=== PATIENT | female | born 1975 | race Hispanic/Latino ===

== ENCOUNTER 2020-10-26 11:20 | Emergency (ER) | payer SELFPAY ==
[2020-10-26 13:04] LABS: Absolute Lymphocytes (CBC) 2.1 K/uL (0.7-4.9); Basophils % 0.5 % (0-1.3); Hematocrit 24.2 % (36.0-45.0); Lymphocytes % 28.3 % (15.3-44.8); MPV 8.7 fL (7.6-11.3); RBC Red Blood Cell Count 4.23 M/uL (3.86-4.86)
--- NOTE | 2020-10-26 13:18 | RAD REPORT ---
EXAM DESCRIPTION: US - Abdomen Exam Limited - 10/26/2020 1:03 pm CLINICAL HISTORY: RUQ COMPARISON: No comparisons FINDINGS: No gallstones, sludge or other significant findings within the gallbladder lumen. An incid ental 2-3 mm polyp was seen adherent to the wall. There is no wall thickening or pericholecystic flui d. No common duct stone or biliary tree dilatation identified. IMPRESSION: No gallstones or significant gallbladder finding. No biliary tree abnormality.
[2020-10-26 13:33] LABS: ALT/SGPT 19 U/L (12-78); AST/SGOT 16 U/L (15-37); Albumin 3.5 g/dL (3.4-5.0); Alkaline Phosphatase 113 U/L (45-117); BUN Blood Urea Nitrogen 8 mg/dL (7-18); Bicarbonate 25 mmol/L (21-32); Bilirubin Direct < 0.1 mg/dL (0-0.2); Bilirubin Total 0.4 mg/dL (0.2-1.0); Glucose Level 96 mg/dL (74-106); Lipase 63 U/L (73-393); Potassium 4.1 mmol/L (3.5-5.1); Sodium Level 141 mmol/L (136-145)
[2020-10-26 13:48] LABS: Blood Morphology Comment NOTED (NOT SEEN); Platelet Estimate ADEQ; White Blood Cell Scan OK (OK)
[2020-10-26 13:49] LABS: Hypochromasia 3+
[2020-10-26 14:10] LABS: Urine Blood NEGATIVE (NEG); Urine Glucose NEGATIVE (NEG); Urine Protein NEGATIVE (NEG); Urine Specific Gravity 1.025 (1.005-1.030); Urine pH 5.5 (5.0-7.0)
--- NOTE | 2020-10-26 14:32 | EDPHYS ---
Physician Documentation [facility] Name: Glendy Galarza Age: 45 yrs Sex: Female : 1975 Arrival Date: 10/26/2020 Time: 11:22 Bed 25 Private MD: ED Physician Pedro Cutler HPI: 10/26 12:57 This 45 yrs old Female presents to ER via Ambulatory with complaints of Back ma2 Pain, Numbness - l leg. 12:57 This 45 yrs old Female presents to ER via Ambulatory with complaints of Back ma2 Pain, Numbness - l leg. 12:57 The patient presents with pain and a burn. The symptoms are located in the right flank ma2 and RUQ . Onset: The symptoms/episode began/occurred gradually, 2 day(s) ago. Associated signs and symptoms: Pertinent negatives: constipation, fever, headache, hematuria, nausea. Severity of symptoms: At their worst the symptoms were very mild, in the emergency department the symptoms have resolved. The patient has not experienced similar symptoms in the past. Historical: - Allergies: 11:36 No Known Allergies; aa5 - Home Meds: 11:36 None [Active]; aa5 - PMHx: 11:36 None; aa5 - PSHx: 11:36 left wrist surgery; aa5 - Immunization history:: Adult Immunizations unknown. - Social history:: Smoking status: Patient denies any tobacco usage or history of. Patient/guardian denies using alcohol, street drugs, The patient lives with family. - Family history:: not pertinent. ROS: 12:57 Constitutional: Negative for fever, chills, and weight loss. ma2 12:57 All other systems are negative. Exam: 12:57 Constitutional: This is a well developed, well nourished patient who is awake, alert, ma2 and in no acute distress. Head/Face: Normocephalic, atraumatic. Eyes: Pupils equal round and reactive to light, extra-ocular motions intact. Lids and lashes normal. Conjunctiva and sclera are non-icteric and not injected. Cornea within normal limits. Periorbital areas with no swelling, redness, or edema. ENT: Nares patent. No nasal discharge, no septal abnormalities noted. Tympanic membranes are normal and external auditory canals are clear. Oropharynx with no redness, swelling, or masses, exudates, or evidence of obstruction, uvula midline. Mucous membranes moist. Neck: Trachea midline, no thyromegaly or masses palpated, and no cervical lymphadenopathy. Supple, full range of motion without nuchal rigidity, or vertebral point tenderness. No Meningismus. Chest/axilla: Normal chest wall appearance and motion. Nontender with no deformity. No lesions are appreciated. Cardiovascular: Regular rate and rhythm with a normal S1 and S2. No gallops, murmurs, or rubs. Normal PMI, no JVD. No pulse deficits. Respiratory: Lungs have equal breath sounds bilaterally, clear to auscultation and percussion. No rales, rhonchi or wheezes noted. No increased work of breathing, no retractions or nasal flaring. Abdomen/GI: Soft, non-tender, with normal bowel sounds. No distension or tympany. No guarding or rebound. No evidence of tenderness throughout. Skin: Warm, dry with normal turgor. Normal color with no rashes, no lesions, and no evidence of cellulitis. MS/ Extremity: Pulses equal, no cyanosis. Neurovascular intact. Full, normal range of motion. Neuro: Awake and alert, GCS 15, oriented to person, place, time, and situation. Cranial nerves II-XII grossly intact. Motor strength 5/5 in all extremities. Sensory grossly intact. Cerebellar exam normal. Normal gait. Vital Signs: 11:36 BP 111 / 52; Pulse 81; Resp 16 S; Temp 98.0(TE); Pulse Ox 100% on R/A; Weight 104.33 kg aa5 (R); Height 5 ft. 2 in. (157.48 cm) (R); Pain 5/10; 14:23 BP 111 / 92; Pulse 75; Resp 18; Pulse Ox 99% on R/A; zb 11:36 Body Mass Index 42.07 (104.33 kg, 157.48 cm) aa5 MDM: 11:44 Patient medically screened. ma2 14:30 Differential diagnosis: Pyelonephritis Renal Infarction sprain, Ureterolithiasis. Data ma2 reviewed: vital signs, nurses notes. Counseling: I had a detailed discussion with the patient and/or guardian regarding: the historical points, exam findings, and any diagnostic results supporting the discharge/admit diagnosis, the presence of at least one elevated blood pressure reading (>120/80) during this emergency department visit, the need for outpatient follow up. Response to treatment: the patient's symptoms have resolved after treatment. 10/26 12:21 Order name: Basic Metabolic Panel ma2 10/26 12:21 Order name: CBC with Diff ma2 10/26 12:21 Order name: Hepatic Function ma2 10/26 12:21 Order name: Lipase ma2 10/26 12:56 Order name: CBC with Automated Diff; Complete Time: 14:17 EDMS 10/26 13:22 Order name: Urine Dipstick--Ancillary (enter results) bd 10/26 12:21 Order name: US Abdomen Limited; Complete Time: 13:29 ma2 10/26 12:21 Order name: IV Saline Lock; Complete Time: 12:38 ma2 10/26 13:22 Order name: Urine --Ancillary (enter results) bd 10/26 13:33 Order name: Basic Metabolic Panel; Complete Time: 14:17 EDMS 10/26 13:33 Order name: Liver (Hepatic) Function; Complete Time: 14:17 EDMS 10/26 13:33 Order name: Lipase; Complete Time: 14:17 EDMS 10/26 14:11 Order name: Urine --Ancillary; Complete Time: 14:17 EDMS 10/26 14:11 Order name: Urine Dipstick-Ancillary; Complete Time: 14:17 EDMS 10/26 12:21 Order name: NPO; Complete Time: 12:38 ma2 10/26 12:21 Order name: Urine Dipstick-Ancillary (obtain specimen); Complete Time: 13:22 ma2 Administered Medications: No medications were administered Disposition: 10/26/20 14:31 Discharged to Home. Impression: Upper abdominal pain, unspecified. - Condition is Stable. - Discharge Instructions: Abdominal Pain, Adult. - Prescriptions for Diclofenac Sodium 75 mg Oral Tablet Sustained Release - take 1 tablet by ORAL route 2 times per day; 30 tablet. Pepcid 20 mg Oral Tablet - take 1 tablet by ORAL route once daily; 20 tablet. - Medication Reconciliation Form, Thank You Letter, Antibiotic Education, Prescription Opioid Use form. - Follow up: Private Physician; When: Tomorrow; Reason: If symptoms return, Continuance of care. Signatures: Dispatcher [employer] EDMS Alba Olsen RN RN aa5 Pedro Cutler MD MD ma2 Donna Wu RN RN zb Corrections: (The following items were deleted from the chart) 14:55 14:31 10/26/2020 14:31 Discharged to Home. Impression: Upper abdominal pain, zb unspecified. Condition is Stable. Forms are Medication Reconciliation Form, Thank You Letter, Antibiotic Education, Prescription Opioid Use. Follow up: Private Physician; When: Tomorrow; Reason: If symptoms return, Continuance of care. ma2
--- NOTE | 2020-10-26 14:32 | ER ---
Nurse's Notes [facility] Name: Glendy Galarza Age: 45 yrs Sex: Female : 1975 Arrival Date: 10/26/2020 Time: 11:22 Bed 25 Private MD: Diagnosis: Upper abdominal pain, unspecified Presentation: 10/26 11:35 Chief complaint: Patient states: right flank pain radiating to RUQ that began 2-3 days aa5 ago, pt also reports tingling to left leg for 2-3 days ago. Pt denies nausea/vomiting/diarrhea. Coronavirus screen: Client denies travel out of the [place] in the last 14 days. At this time, the client does not indicate any symptoms associated with coronavirus-19. Ebola Screen: Patient negative for fever greater than or equal to 101.5 degrees Fahrenheit, and additional compatible Ebola Virus Disease symptoms. Initial Sepsis Screen: Does the patient meet any 2 criteria? No. Patient's initial sepsis screen is negative. Does the patient have a suspected source of infection? No. Patient's initial sepsis screen is negative. Risk Assessment: Do you want to hurt yourself or someone else? Patient reports no desire to harm self or others. Onset of symptoms was October 2020. 11:35 Acuity: ANGEL 3 aa5 11:35 Method Of Arrival: Ambulatory aa5 Historical: - Allergies: 11:36 No Known Allergies; aa5 - Home Meds: 11:36 None [Active]; aa5 - PMHx: 11:36 None; aa5 - PSHx: 11:36 left wrist surgery; aa5 - Immunization history:: Adult Immunizations unknown. - Social history:: Smoking status: Patient denies any tobacco usage or history of. Patient/guardian denies using alcohol, street drugs, The patient lives with family. - Family history:: not pertinent. Screenin:11 Abuse screen: Denies threats or abuse. Denies injuries from another. Nutritional zb screening: No deficits noted. Tuberculosis screening: No symptoms or risk factors identified. Fall Risk None identified. Assessment: 12:05 General: Appears in no apparent distress. comfortable, Behavior is calm, cooperative, zb appropriate for age. Pain: Complains of pain in Right flank/back pain and left leg numbness Pain currently is 6 out of 10 on a pain scale. Pain began 2-3 days ago. Is continuous. Neuro: Level of Consciousness is awake, alert, obeys commands, Oriented to person, place, time, situation, Reports numbness in Left leg since 2 days ago. Cardiovascular: Capillary refill < 3 seconds in bilateral Patient's skin is warm and dry. Respiratory: Airway is patent Respiratory effort is even, unlabored, Respiratory pattern is regular, symmetrical. GI: No signs and/or symptoms were reported involving the gastrointestinal system. Abdomen is round non-distended. : No signs and/or symptoms were reported regarding the genitourinary system. EENT: No signs and/or symptoms were reported regarding the EENT system. Derm: Skin is intact, is healthy with good turgor, Skin is normal. Musculoskeletal: No signs and/or symptoms reported regarding the musculoskeletal system. Circulation, motion, and sensation intact. Range of motion: intact in all extremities. 13:00 Reassessment: Patient appears in no apparent distress at this time. Patient and/or zb family updated on plan of care and expected duration. Pain level reassessed. Patient is alert, oriented x 3, equal unlabored respirations, skin warm/dry/pink. family at bedside, warm blanket given to patient. 14:05 Reassessment: Patient appears in no apparent distress at this time. Patient and/or zb family updated on plan of care and expected duration. Pain level reassessed. Patient is alert, oriented x 3, equal unlabored respirations, skin warm/dry/pink. Vital Signs: 11:36 BP 111 / 52; Pulse 81; Resp 16 S; Temp 98.0(TE); Pulse Ox 100% on R/A; Weight 104.33 kg aa5 (R); Height 5 ft. 2 in. (157.48 cm) (R); Pain 5/10; 14:23 BP 111 / 92; Pulse 75; Resp 18; Pulse Ox 99% on R/A; zb 11:36 Body Mass Index 42.07 (104.33 kg, 157.48 cm) aa5 ED Course: 11:22 Patient arrived in ED. as 11:34 Arm band placed on. aa5 11:35 Triage completed. aa5 11:44 Pedro Cutler MD is Attending Physician. ma2 11:54 Brown, Donna, RN is Primary Nurse. zb 12:11 Patient has correct armband on for positive identification. Bed in low position. Call zb light in reach. Side rails up X 1. Door closed. Noise minimized. 12:50 Inserted saline lock: 20 gauge in right antecubital area, using aseptic technique. zb Missed attempt(s): 20 gauge in left antecubital area. 13:03 US Abdomen Limited In Process Unspecified. EDMS 14:30 No provider procedures requiring assistance completed. IV discontinued, intact, zb bleeding controlled, No redness/swelling at site. Pressure dressing applied. Administered Medications: No medications were administered Outcome: 14:30 Discharged to home ambulatory, with family. zb 14:30 Condition: stable 14:30 Discharge instructions given to patient, family, Instructed on discharge instructions, follow up and referral plans. medication usage, Demonstrated understanding of instructions, follow-up care, medications, Prescriptions given X 2. 14:31 Discharge ordered by . grabiel 14:55 Patient left the ED. zb Signatures: Dispatcher [employer] Nancy Garcia Audri, RN RN dani5 Pedro Cutler MD MD ma2 Brown, Zipporah, RN RN zb
== END 2020-10-26 14:55 | disposition home or self-care (01) ==
LOC: ER 11:20
DX: R10.11 Right upper quadrant pain (principal)
CPT/HCPCS: 36415; 76705; 80048; 80076; 81003; 81025; 83690; 85025; 99283

== ENCOUNTER 2021-07-05 11:04 | Emergency (ER) | payer SELFPAY ==
--- NOTE | 2021-07-05 12:42 | RAD REPORT ---
EXAM DESCRIPTION: CT - Head Brain Wo Cont - 07/05/2021 12:27 pm CLINICAL HISTORY: VISUAL DISTURBANCES COMPARISON: HEAD BRAIN W O CONTRAST dated 07/26/2015 TECHNIQUE: All CT scans are performed using dose optimization technique as appropriate and may inclu de automated exposure control or mA/KV adjustment according to patient size. FINDINGS: No intracranial hemorrhage, hydrocephalus or extra-axial fluid collection.No areas of brai n edema or evidence of midline shift. The paranasal sinuses and mastoids are clear. The calvarium is intact. IMPRESSION: No acute intracranial abnormality.
--- NOTE | 2021-07-05 15:07 | RAD REPORT ---
EXAM DESCRIPTION: MRI - Brain Wo Cont - 07/05/2021 2:47 pm CLINICAL HISTORY: Left eye lateral rectus palsy COMPARISON: 07/05/2021 TECHNIQUE: Sagittal T1-weighted images were obtained along with PD/heavily T2-weighted and T2-FLAIR images. Axial DWI and ADC mapping sequences were also obtained along with coronal heavily T2-weighted images were obtained. FINDINGS: No intracranial hemorrhage, mass or acute infarction. There is no edema or shift of midlin e structures. No extra-axial fluid collections. There are age advanced bilateral T2/FLAIR hyperintens e foci within the centrum semiovale and kincaid radiata. Several of these are oriented perpendicularly to the lateral ventricles. Signal voids are seen as a normal finding in the major intracranial vesse ls. There is also abnormal signal within the cerebellar peduncles. Mastoid air cells and paranasal sinuses are clear. IMPRESSION: No acute infarct identified. Bilateral T2/FLAIR hyperintense foci within the supra- and infratentorial brain concerning for a demyelinating disease in a patient of this age including multip le sclerosis.
--- NOTE | 2021-07-05 16:37 | ER ---
Nurse's Notes [facility] Name: Glendy Galarza Age: 46 yrs Sex: Female : 1975 Arrival Date: 07/05/2021 Time: 11:36 Bed DIS8 Private MD: Diagnosis: Demyelinating disease of central nervous system, unspecified Presentation: 07/05 12:13 Chief complaint: Patient states: Left eye blurry x 1 week, denies dizziness. jl7 Coronavirus screen: Client denies travel out of the [place] in the last 14 days. At this time, the client does not indicate any symptoms associated with coronavirus-19. Ebola Screen: No symptoms or risks identified at this time. Initial Sepsis Screen: Does the patient meet any 2 criteria? No. Patient's initial sepsis screen is negative. Does the patient have a suspected source of infection? No. Patient's initial sepsis screen is negative. Risk Assessment: Do you want to hurt yourself or someone else? Patient reports no desire to harm self or others. Onset of symptoms was June 28, 2021. 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 - Social history:: Smoking status: Patient denies any tobacco usage or history of. Screenin:35 Abuse screen: Denies threats or abuse. Denies injuries from another. Nutritional iw screening: No deficits noted. Tuberculosis screening: No symptoms or risk factors identified. Assessment: 15:35 Reassessment: Patient appears in no apparent distress at this time. Patient and/or iw family updated on plan of care and expected duration. Pain level reassessed. Patient is alert, oriented x 3, equal unlabored respirations, skin warm/dry/pink. Vital Signs: 12:13 BP 117 / 95; Pulse 105; Resp 17; Temp 98.3; Pulse Ox 100% ; Pain 0/10; jl7 ED Course: 11:36 Patient arrived in ED. am2 12:14 Triage completed. jl7 12:14 Arm band placed on right wrist. jl7 12:26 CT Head Brain wo Cont In Process Unspecified. EDMS 13:52 Alonso Glez is Attending Physician. sp3 14:28 MRI - Brain Wo Cont In Process Unspecified. EDMS 15:23 Marika Blue, RN is Primary Nurse. iw 16:36 Bob Galeas MD is Referral Physician. sp3 Administered Medications: No medications were administered Outcome: 16:37 Discharge ordered by MD. sp3 16:54 Patient left the ED. hb Signatures: Dispatcher [employer] EDMS Marika Blue, RN RN Jennie Gonzalez RN RN Alana Cummings RN RN jl7 Selma Bob am2 Alonso Glez sp3
--- NOTE | 2021-07-05 16:37 | EDPHYS ---
Physician Documentation [facility] Name: Glendy Galarza Age: 46 yrs Sex: Female : 1975 Arrival Date: 07/05/2021 Time: 11:36 Bed DIS8 Private MD: ED Physician Alonso Glez HPI: 07/05 14:22 This 46 yrs old Female presents to ER via Ambulatory with complaints of sp3 Dizziness, Eye Problem, Vision Problem. 14:22 46-year-old female with no known medical problems and on no medications presents with a sp3 3-day history of double vision on horizontal gaze on the left side. Patient first noticed a mild double vision which is progressed since then. Patient has no symptoms when looking up, down, right or any issues or changes with her visual acuity. Patient denies headache, fever, neck pain, chest pain, shortness of breath, weight loss, weight gain, syncope, near syncope, confusion, memory loss, sensory deficits, or any other aspects of ROS at this time. Symptoms are isolated to the eye itself and patient also denies trauma. Patient does not get regular eye care and does not wear contact lenses or corrective eyewear.. 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 - Social history:: Smoking status: Patient denies any tobacco usage or history of. ROS: 14:24 Constitutional: Negative for fever, chills, and weight loss, ENT: Negative for injury, sp3 pain, and discharge, Neck: Negative for injury, pain, and swelling, Cardiovascular: Negative for chest pain, palpitations, and edema, Respiratory: Negative for shortness of breath, cough, wheezing, and pleuritic chest pain, Abdomen/GI: Negative for abdominal pain, nausea, vomiting, diarrhea, and constipation, Back: Negative for injury and pain, MS/Extremity: Negative for injury and deformity, Skin: Negative for injury, rash, and discoloration, Neuro: Negative for headache, weakness, numbness, tingling, and seizure, Psych: Negative for depression, anxiety, suicide ideation, homicidal ideation, and hallucinations, Endocrine: Negative for neck swelling, polydipsia, polyuria, polyphagia, and marked weight changes, Hematologic/Lymphatic: Negative for swollen nodes, abnormal bleeding, and unusual bruising. 14:24 Eyes: Positive for visual disturbance, Negative for blurry vision, discharge, foreign body sensation, icterus, injury or acute deformity, itching, pain, photophobia, redness, sunken appearance, swelling, vision loss. Exam: 14:25 Constitutional: This is a well developed, well nourished patient who is awake, alert, sp3 and in no acute distress. Head/Face: Normocephalic, atraumatic. ENT: Nares patent. No nasal discharge, no septal abnormalities noted. External auditory canals are clear. Oropharynx with no redness, swelling, or masses, exudates, or evidence of obstruction, uvula midline. Mucous membranes moist. Neck: Trachea midline, no thyromegaly or masses palpated, and no cervical lymphadenopathy. Supple, full range of motion without nuchal rigidity, or vertebral point tenderness. No Meningismus. Chest/axilla: Normal chest wall appearance and motion. Nontender with no deformity. No lesions are appreciated. Cardiovascular: Regular rate and rhythm with a normal S1 and S2. No gallops, murmurs, or rubs. Normal PMI, no JVD. No pulse deficits. Respiratory: Lungs have equal breath sounds bilaterally, clear to auscultation and percussion. No rales, rhonchi or wheezes noted. No increased work of breathing, no retractions or nasal flaring. Abdomen/GI: Soft, non-tender, with normal bowel sounds. No distension or tympany. No guarding or rebound. No evidence of tenderness throughout. Skin: Warm, dry with normal turgor. Normal color with no rashes, no lesions, and no evidence of cellulitis. MS/ Extremity: Pulses equal, no cyanosis. Neurovascular intact. Full, normal range of motion. Neuro: Awake and alert, GCS 15, oriented to person, place, time, and situation. Cranial nerves II-XII grossly intact. Motor strength 5/5 in all extremities. Sensory grossly intact. Cerebellar exam normal. Normal gait. Psych: Awake, alert, with orientation to person, place and time. Behavior, mood, and affect are within normal limits. 14:25 Eyes: Extraocular movements: Patient has an isolated lateral rectus palsy on the left eye without involvement of other extraocular muscles.. Vital Signs: 12:13 BP 117 / 95; Pulse 105; Resp 17; Temp 98.3; Pulse Ox 100% ; Pain 0/10; jl7 MDM: 13:58 Patient medically screened. sp3 14:28 ED course: CT scan of the head is negative. Accu-Chek is pending. We will attempt to sp3 get an MRI of the brain and if negative will discharge patient with ophthalmology follow-up. Patient likely has microangiopathic changes but we must rule out space-occupying lesion and mass-effect potentially not seen on CT.. 16:32 ED course: Patient's MRI demonstrates demyelinating processes in multiple sites in her sp3 brainwhich likely represents multiple sclerosis. I did have a chance to speak to Dr. Galeas from neurology via telephone who recommended no further treatment immediately for this since we have not delineated the exact cause. This includes no need for steroids or IVIG. I will give Dr. Galeas's contact information as well as options for [facility] sites to the patient for immediate follow-up. I have explained all of this to the patient in [place] and I have answered all of her questions. Patient has no further questions and she is stable enough for discharge from the emergency room.. 07/05 15:27 Order name: Glucose, Ancillary Testing; Complete Time: 16:16 EDMS 07/05 12:17 Order name: CT Head Brain wo Cont; Complete Time: 13:58 jl7 07/05 14:09 Order name: MRI - Brain Wo Cont; Complete Time: 16:16 sp3 07/05 14:10 Order name: Accucheck Blood Glucose; Complete Time: 15:16 sp3 Administered Medications: No medications were administered Disposition Summary: 07/05/21 16:37 Discharge Ordered Location: Home sp3 Condition: Stable sp3 Diagnosis - Demyelinating disease of central nervous system, unspecified sp3 Followup: sp3 - With: Bob Galeas MD - When: 1 week - Reason: Recheck today's complaints Discharge Instructions: - Discharge Summary Sheet sp3 - Multiple Sclerosis sp3 Forms: - Medication Reconciliation Form sp3 - Thank You Letter sp3 - Antibiotic Education sp3 - Prescription Opioid Use sp3 Signatures: Dispatcher [employer] Alana Camacho, RN RN jl7 Alonso Glez sp3
[2021-07-05 17:19] VITALS: BP 117/95; TEMP 98.3; O2SAT 100
== END 2021-07-05 16:54 | disposition home or self-care (01) ==
LOC: ER 11:04
DX: G37.9 Demyelinating disease of central nervous system, unspecified (principal)
CPT/HCPCS: 70450; 70551; 82947; 99282